=== PATIENT | male | born 2000 | race Hispanic/Latino ===

== ENCOUNTER 2024-03-23 21:38 | Emergency (ER) | payer SELFPAY ==
[~2024-03-23] VITALS: Ht 170.2 cm; Wt 65.8 kg
[2024-03-23 21:45] VITALS: PULSE 97; RESP 18; TEMP 97.8
[2024-03-23] MEDS: IBUPROFEN 400 MG TAB PO ONE (22:20)
[2024-03-23 23:46] VITALS: BP 120/60; PULSE 66; RESP 17; TEMP 98.2; O2SAT 100
== END 2024-03-23 23:52 | disposition home or self-care (01) ==
LOC: ER 21:43
DX: M25.512 Pain in left shoulder (principal); M25.522 Pain in left elbow; M25.532 Pain in left wrist; M54.50 Low back pain, unspecified; S80.211A Abrasion, right knee, initial encounter; V43.52XA Car driver injured in collision with other type car in traffic accident, initial encounter; Y92.488 Other paved roadways as the place of occurrence of the external cause
CPT/HCPCS: 72100; 99283

== ENCOUNTER 2025-01-11 22:19 | Emergency (ER) | payer SELFPAY ==
[~2025-01-11] VITALS: Ht 172.7 cm; Wt 65.8 kg
[2025-01-11 22:31] VITALS: RESP 16
[2025-01-12 00:17] VITALS: PULSE 75; TEMP 97.7; O2SAT 99
== END 2025-01-12 00:24 | disposition home or self-care (01) ==
LOC: ER 01-12 00:24
DX: S00.33XA Contusion of nose, initial encounter (principal); W51.XXXA Accidental striking against or bumped into by another person, initial encounter; Y93.66 Activity, soccer; Y92.322 Soccer field as the place of occurrence of the external cause
CPT/HCPCS: 70160; 99283